=== PATIENT | male | born 1960 | race Caucasian/White ===

== ENCOUNTER 2020-02-06 10:19 | Inpatient (IN) | payer OTHER ==
[~2020-02-06] VITALS: Ht 177.8 cm; Wt 126.7 kg
--- NOTE | ~2020-02-06 | CON ---
[address] [address] CONSULTATION Name: LINDA BAH Room: [address] IN M.R.#: [id number] Admission: 02/06/20 Attend Phys: Jero Gutierrez MD Discharge: Date of : 60 Report #: [id number] THIS REPORT FOR: //name// cc: AMOL Garrison family physician/PCP AMOL Garrison family physician/PCP ~ THIS REPORT FOR: //name// CC: Jero Gutierrez FAM physician/PCP DATE OF SERVICE: 02/06/2020 HISTORY OF PRESENT ILLNESS: A 59-year-old male patient who was seen by me for the possibility of stroke. The patient was discussed with Dr. Recio. This patient has a longstanding history of hypertension. He also has a history of gout, and he stopped taking his medication about a month ago. He was noticed to have imbalance and headache. He came to Emergency Room and a CT scan demonstrated a possible lacunar CVA, but the patient's main problem is ataxia. REVIEW OF SYSTEMS: Mostly positive for hypertension and gout. Now, he is having a significant amount of ataxia. He was on 3 medications before he stopped taking his medications. PAST MEDICAL HISTORY: Positive for hypertension and gout. FAMILY HISTORY: Unremarkable. SOCIAL HISTORY: He drinks occasionally alcohol, but does not smoke. PHYSICAL EXAMINATION: The patient's examination indicates, he is alert, responsive, able to follow simple and complex command. His speech, concentration looks intact. Cranial nerve examination and neuromuscular examinations appear mostly unremarkable. There is no meningeal sign. There is no carotid bruit. Cardiac examination is unremarkable. Blood pressure is persistently running high and the last one was 178/93. DIAGNOSTIC DATA: His white count is 6.7 and his GFR is 76. CT is as described above. No respiratory difficulty was noticed. IMPRESSION: Clinically, this patient neither has hypertensive encephalopathy or a stroke or a combination. The strokes on CT looks old. So I have ordered an MRI and MRA to look for the vasculature as well as the age of the stroke. If his vasculature is open, then I think we can try to lower his blood pressure reasonably fast, but still should keep it around 160-170 systolic. If he has a compromised vasculature, we may have to keep the blood pressure high. He already received aspirin and if the stroke is documented, [place] [address] CONSULTATION Name: LINDA BAH Room: [address]#: [id number] Admission: 02/06/20 Attend Phys: Jero Gutierrez MD Discharge: Date of : 60 Report #: [id number] Plavix. About 50 minutes of time was spent taking care of this patient and majority of that time was spent counseling and coordinating his care including reviewing his all the records. Thank you very much for this referral and if you have any questions, please feel free to contact me. By: 1555 Rajeev Palma MD /janie
[2020-02-06 10:25] VITALS: BP 199/99
[2020-02-06] MEDS ORDERED: HYDROCHLOROTHIA25 M2 PO (10:28)
[2020-02-06] MEDS ORDERED: LISINOPRIL2.5 MG PO (10:29)
[2020-02-06] MEDS ORDERED: NORVASC 2.5 MG2.5 M1 PO (10:29)
[2020-02-06 10:48] LABS: ABSOLUTE EOSINOPHILS 0.1 thou/uL (0.0-0.7); ABSOLUTE LYMPHOCYTES 1.6 thou/uL (0.8-5.3); ABSOLUTE MONOCYTES 0.5 thou/uL (0.0-1.2); ABSOLUTE NEUTROPHILS 4.5 thou/uL (1.6-8.1); BASOPHILS 0.6 %; EOSINOPHILS 0.9 %; HEMATOCRIT 46.1 % (42.0-52.0); HEMOGLOBIN 16.4 gm/dL (14.0-18.0); MCH 31.7 pg (26.0-34.0); MCHC 35.5 g/dL (28.0-37.0); MCV 89.4 fL (80.0-100.0); MONOCYTES 7.6 %; MPV 9.1 fl. (7.2-11.1); NUCLEATED RBCS 0 /100WBC; PLATELET COUNT* 171 thou/uL (150-400); POLYS 66.9 %; RBC 5.16 mil/uL (4.50-6.00); RDW-CV 13.1 % (10.5-14.5); WBC 6.7 thou/uL (4.0-11.0)
[2020-02-06 10:57] LABS: CALCIUM 8.7 mg/dL (8.5-10.1); POTASSIUM 3.7 mmol/L (3.5-5.1)
[2020-02-06 10:58] LABS: APTT 24.6 Seconds (25.0-31.3); PROTIME 10.4 Seconds (9.20-11.50)
--- NOTE | 2020-02-06 14:48 | EKG ---
[place] [address] ELECTROCARDIOGRAM REPORT Name: LINDA BAH Room: [place] [address] ADM IN R.#: [id number] Admission: 02/06/20 Attend Phys: Jero Gutierrez, Discharge: Date of : 60 Date of Service: 02/06/20 1026 Report #: [id number] THIS REPORT FOR: //name// [facility] ED Test Date: 2020-02-06 Test Time: 10:26:34 Pat Name: LINDA OLVIN Department: Room: [facility] Gender: M Grades 9 12 Tutor: MS : 1960 Requested By: Deja Recio Order Number: [id number] MD: Raymon Vaughn Measurements Intervals Lloyd Rate: 50 P: -11 NH: 155 QRS: -22 QRSD: 115 T: 63 QT: 587 QTc: 536 Interpretive Statements Sinus bradycardia Nonspecific intraventricular conduction delay Nonspecific T abnrm, anterolateral leads Compared to ECG 12/15/2005 22:29:14 rate has slowed Electronically Signed On 02-06-2020 14:46:52 CDT by Raymon Vaughn [email or web address] <ELECTRONICALLY SIGNED> By: Raymon Vaughn MD, [facility] 02/06/20 1446 1026 1026 Raymon Vaughn MD, [facility] /EPI
[2020-02-06 14:56] VITALS: BP 178/93
[2020-02-06 15:30] VITALS: BP 98/73
[2020-02-06 16:00] VITALS: BP 139/83
[2020-02-06 18:45] LABS: URINE BILIRUBIN NEGATIVE (Negative); URINE BLOOD NEGATIVE (Negative); URINE CLARITY CLEAR; URINE COLOR YELLOW; URINE GLUCOSE-RANDOM NEGATIVE (Negative); URINE KETONES NEGATIVE (Negative); URINE LEUKOCYTES-REFLEX NEGATIVE (Negative); URINE NITRITE-REFLEX NEGATIVE (Negative); URINE PROTEIN NEGATIVE (Negative); URINE SPECIFIC GRAVITY 1.015 (1.005-1.030); URINE UROBILINOGEN 0.2 E.U./dl (0.2-1.0)
[2020-02-06 19:02] LABS: AMP/METHAMP Negative (Negative); BARBITURATES Negative (Negative); BENZODIAZEPINES Negative (Negative); COCAINE Negative (Negative); METHADONE Negative (Negative); OPIATES Negative (Negative); PCP Negative (Negative); THC Negative (Negative)
[2020-02-06 19:50] VITALS: BP 159/95
[2020-02-07] VITALS: BP 141/94
[2020-02-07 02:08] LABS: GLYCOHEMOGLOBIN (HGB A1C) 6.3 % (4.8-5.6)
[2020-02-07 03:40] VITALS: BP 135/95
[2020-02-07 04:40] LABS: ABSOLUTE EOSINOPHILS 0.1 thou/uL (0.0-0.7); ABSOLUTE LYMPHOCYTES 1.9 thou/uL (0.8-5.3); ABSOLUTE MONOCYTES 0.6 thou/uL (0.0-1.2); ABSOLUTE NEUTROPHILS 4.8 thou/uL (1.6-8.1); BASOPHILS 0.3 %; EOSINOPHILS 0.7 %; HEMATOCRIT 44.2 % (42.0-52.0); HEMOGLOBIN 15.8 gm/dL (14.0-18.0); LYMPHOCYTES 25.8 %; MCH 31.7 pg (26.0-34.0); MCHC 35.7 g/dL (28.0-37.0); MONOCYTES 8.4 %; MPV 9.1 fl. (7.2-11.1); NUCLEATED RBCS 0 /100WBC; PLATELET COUNT* 181 thou/uL (150-400); POLYS 64.8 %; RBC 4.97 mil/uL (4.50-6.00); RDW-CV 13.8 % (10.5-14.5); WBC 7.4 thou/uL (4.0-11.0)
[2020-02-07 05:02] LABS: CALCIUM 8.7 mg/dL (8.5-10.1); CREATININE 0.9 mg/dL (0.6-1.3)
[2020-02-07 05:04] LABS: POTASSIUM 2.6 mmol/L (3.5-5.1)
[2020-02-07 05:09] LABS: CHOLESTEROL 184 mg/dL (<200); HDL CHOLESTEROL 27 mg/dL (>40); LDL CHOLESTEROL 109 mg/dL (<100); SERUM ASSESSMENT Clear; TC:HDL 6.8 Ratio (Not establshd); TRIGLYCERIDE 244 mg/dL (<150); VLDL 49 mg/dL (<40)
[2020-02-07 08:00] VITALS: BP 137/84
[2020-02-07 11:47] VITALS: BP 137/84
[2020-02-07 11:49] VITALS: BP 146/89
[2020-02-07] MEDS ORDERED: ASA81BEC PO (11:51)
--- NOTE | 2020-02-07 14:09 | 2DMMODE ---
[place] [address] 2 D/M-MODE ECHOCARDIOGRAM Name: LINDA BAH Room: [address] IN Lee.#: [id number] Admission: 02/06/20 Attend Phys: Jero Gutierrez, Discharge: 02/07/20 Date of : 60 Date of Service: 02/07/20 1407 Report #: [id number] THIS REPORT FOR: cc: FAM - No family physician/PCP FAM - No family physician/PCP Raymon Vaughn MD [facility] ~ APPROVED REPORT Study performed: 02/07/2020 10:00:07 EXAM: Comprehensive 2D, Doppler, and color-flow Echocardiogram Patient Location: In-Patient BSA: 2.41 HR: 53 bpm BP: 135/95 mmHg Other Information Study Quality: Fair Technically limited study due to body habitus. Indications CVA/TIA Echo Enhancing Agent Indication: Rule out Shunt Agent(s) / Amount(s) Used: Agitated Saline cc 2D Dimensions IVSd: 16.79 (7-11mm) LVOT Diam: 21.15 (18-24mm) LVDd: 53.62 mm PWd: 13.66 (7-11mm) Ascending Ao: 41.61 (22-36mm) LVDs: 41.01 (25-40mm) Aortic Root: 33.33 mm Volumes Left Atrial Volume (Systole) LA ESV Index: 18.00 mL/m2 Aortic Valve AoV Peak Michel.: 1.18 m/s AO Peak Gr.: 5.61 mmHg LVOT Max P.67 mmHg AO Mean Gr.: 3.17 mmHg LVOT Mean P.22 mmHg LVOT Max V: 0.82 m/[place] [address] 2 D/M-MODE ECHOCARDIOGRAM Name: LINDA BAH Room: [address] IN M.R.#: [id number] Admission: 02/06/20 Attend Phys: Jero Gutierrez, Discharge: 02/07/20 Date of : 60 Date of Service: 02/07/20 1407 Report #: [id number] AO V2 VTI: 26.67 cm LVOT Mean V: 0.50 m/s SILVIA (VTI): 2.29 cm2 LVOT V1 VTI: 17.36 cm Mitral Valve E/A Ratio: 0.95 MV Decel. Time: 229.99 ms MV E Max Michel.: 0.52 m/s MV PHT: 66.70 ms MVA (PHT): 3.30 cm2 TDI E/Lateral E': 6.50 E/Medial E': 5.78 Medial E' Michel.: 0.09 m/s Lateral E' Michel.: 0.08 m/s Pulmonary Valve PV Peak Michel.: 0.78 m/s PV Peak Gr.: 2.46 mmHg Tricuspid Valve TR Peak Gr.: 17.47 mmHg Left Ventricle The left ventricle is normal size. There is normal LV segmental wall motion. Mild left ventricular hypertrophy. Left ventricular systolic function is normal. The left ventricular ejection fraction is within the normal range. LVEF is 55-60%. Grade I - abnormal relaxation pattern. Right Ventricle Right ventricle is dilated. The right ventricular systolic function is normal. Atria The left atrium size is normal. Injection of bubbles documented no interatrial shunt. The right atrium size is normal. Aortic Valve The aortic valve is normal in structure. No aortic regurgitation is present. There is no aortic valvular stenosis. Mitral Valve The mitral valve is normal in structure. Trace mitral regurgitation. No evidence of mitral valve stenosis. Tricuspid Valve The tricuspid valve is normal in structure[place] [address] 2 D/M-MODE ECHOCARDIOGRAM Name: LINDA BAH Room: [address] IN .R.#: [id number] Admission: 02/06/20 Attend Phys: Jero Gutierrez, Discharge: 02/07/20 Date of : 60 Date of Service: 02/07/20 1407 Report #: [id number] regurgitation. Pulmonic Valve The pulmonary valve is normal in structure. There is no pulmonic valvular regurgitation. Great Vessels The aortic root is normal in size. The ascending aorta is mildly dilated. IVC is normal in size and collapses >50% with inspiration. Pericardium There is no pericardial effusion. <Conclusion> Mild left ventricular hypertrophy. LVEF is 55-60%. Injection of bubbles documented no interatrial shunt. <ELECTRONICALLY SIGNED> By: Raymon Vaughn MD, [facility] 02/07/20 140 06 140 Raymon Vaughn MD, FACC /INF
== END 2020-02-07 13:26 | disposition home or self-care (01) | DRG 78 ==
LOC: M.ERS 10:19 → M.TBA-ER 13:16 → M.2W 15:40
PROVIDERS: Personal Emergency Response Attendant; ADMIT Internal Medicine
DX: I67.4 Hypertensive encephalopathy (principal); I16.1 Hypertensive emergency; I10 Essential (primary) hypertension; M10.9 Gout, unspecified; R27.0 Ataxia, unspecified; E66.01 Morbid (severe) obesity due to excess calories; Z87.891 Personal history of nicotine dependence; Z91.19 Patient's noncompliance with other medical treatment and regimen; Z68.41 Body mass index [BMI] 40.0-44.9, adult; Z86.73 Personal history of transient ischemic attack (TIA), and cerebral infarction without residual deficits